=== PATIENT | male | born 1955 | race Caucasian/White ===

== ENCOUNTER → 2021-11-23 | Day surgery (SDC) | payer OTHER ==
[~2021-11-23] MED LIST: ALFUZOSIN HCL E10 MG PO; ALL DAY ALLERGY10 M2 PO; ARTIFICIAL TEAR30 ML EYEBOTH; ASMANEX220 MC1 INH; HYDROCODONE BIT10 MG PO; LISINOPRIL20 MG PO; NALOXONE HCL; PRAVASTATIN SOD10 MG PO; PROTONIX 40 MG40 M1 PO; PROVENTIL HFA6.7 GM INH; SPIRIVA RESPIMAT4 GM INH; VITAMIN D325 MC6 PO; WELLBUTRIN XL150 MG PO
== END | disposition home or self-care (01) ==
LOC: OR 06:03
DX: C14.0 Malignant neoplasm of pharynx, unspecified (principal); E11.9 Type 2 diabetes mellitus without complications; I10 Essential (primary) hypertension; E78.5 Hyperlipidemia, unspecified; Z87.891 Personal history of nicotine dependence; Z79.899 Other long term (current) drug therapy
CPT/HCPCS: 71045; 77001; C1769; C1788; J1100; J1642; J1885; J2001; J2405; J2704; J3010; J7040; J7120